=== PATIENT | female | born 1970 | race Caucasian/White ===

== ENCOUNTER 2024-03-25 06:38 | Day surgery (SDC) | payer OTHER, MEDICAID ==
[~2024-03-25] VITALS: Ht 170.2 cm; Wt 88.0 kg
[2024-03-25] MEDS ORDERED: MEPERIDINE 100 MG INJ. 100 MG/ML VIAL ONE (07:19)
[2024-03-25] MEDS ORDERED: SIMETHICONE 40 MG/0.6 ML ML ONE (07:20)
[2024-03-25] MEDS ORDERED: MIDAZOLAM HCL 5 MG/5 ML VIAL ONE (07:20)
[2024-03-25] MEDS ORDERED: DIPHENHYDRAMINE INJ 50 MG/ML VIAL ONE (09:26)
[2024-03-25 11:27] VITALS: O2SAT 97
[2024-03-25 13:13] VITALS: BP_SYST 113; PULSE 62; RESP 17
== END 2024-03-25 10:30 | disposition home or self-care (01) ==
LOC: SDS 06:38 → SMU 06:48 → SDS 10:30
PROVIDERS: ATTEND Internal Medicine
DX: K59.09 Other constipation (principal); K63.5 Polyp of colon; K57.30 Diverticulosis of large intestine without perforation or abscess without bleeding; K64.8 Other hemorrhoids; E78.5 Hyperlipidemia, unspecified; E03.9 Hypothyroidism, unspecified; Z98.890 Other specified postprocedural states; Z79.890 Hormone replacement therapy; Z79.899 Other long term (current) drug therapy
CPT/HCPCS: 45385; 88305; 99152; G0378; J1200; J2250; J2175